=== PATIENT | male | born 1970 | race Caucasian/White ===

== ENCOUNTER 2021-08-05 08:54 | Day surgery (SDC) | payer OTHER, SELFPAY ==
[~2021-08-05] VITALS: Ht 175.3 cm; Wt 70.3 kg
[2021-08-05] MEDS ORDERED: fentaNYL citrate 0.05 MG/ML VIAL ONE (09:32)
[2021-08-05] MEDS ORDERED: LIDOCAINE 2% 100 MG/5 ML UJET TP ONE (09:33)
[2021-08-05] MEDS ORDERED: fentaNYL citrate 0.05 MG/ML VIAL IVP ONE (09:55)
== END 2021-08-05 10:37 | disposition home or self-care (01) ==
LOC: MDS 08:54 → MMU 08:54 → MDS 10:37
PROVIDERS: ATTEND Internal Medicine Gastroenterology
DX: Z12.11 Encounter for screening for malignant neoplasm of colon (principal); K57.30 Diverticulosis of large intestine without perforation or abscess without bleeding; Z20.822 Contact with and (suspected) exposure to COVID-19
CPT/HCPCS: 45378; 87426; J3010